=== PATIENT | female | born 1950 | race Two or more races ===

== ENCOUNTER 2018-07-23 18:51 | Emergency (ER) | payer MEDICARE, OTHER ==
[~2018-07-23] VITALS: Ht 167.6 cm; Wt 72.7 kg
[2018-07-23] MEDS ORDERED: ATOR40TA28 PO (18:57)
[2018-07-23] MEDS ORDERED: OMEP20 PO (18:57)
[2018-07-23] MEDS ORDERED: METO25XL PO (18:57)
[2018-07-23] MEDS ORDERED: METF-960 PO (18:57)
[2018-07-23] MEDS ORDERED: ASPI81 PO (18:57)
[2018-07-23 19:04] LABS: GLUCOSE,POINT OF CARE 136 MG/DL (70-110)
[2018-07-23] MEDS ORDERED: METHOCARBAMOL 500 MG TABLET PO ONE (19:45)
[2018-07-23] MEDS ORDERED: KETOROLAC TROMETHAMINE 60 MG/2 ML VIAL IM ONE (19:45)
[2018-07-23 21:15] VITALS: BP 150/90
== END 2018-07-23 21:21 | disposition home or self-care (01) ==
LOC: EMS 18:52
DX: S13.4XXA Sprain of ligaments of cervical spine, initial encounter (principal); S50.02XA Contusion of left elbow, initial encounter; E11.9 Type 2 diabetes mellitus without complications; E78.00 Pure hypercholesterolemia, unspecified; I10 Essential (primary) hypertension; Z90.49 Acquired absence of other specified parts of digestive tract; Z90.710 Acquired absence of both cervix and uterus; Z98.890 Other specified postprocedural states; Z79.82 Long term (current) use of aspirin; Z79.84 Long term (current) use of oral hypoglycemic drugs; Z79.899 Other long term (current) drug therapy; Z88.5 Allergy status to narcotic agent; V43.52XA Car driver injured in collision with other type car in traffic accident, initial encounter; Y93.89 Activity, other specified; Y92.481 Parking lot as the place of occurrence of the external cause; Y99.8 Other external cause status
CPT/HCPCS: 73080; 82962; 96372; 99284; J1885

== ENCOUNTER → 2018-12-27 | Outpatient (CLI) | payer MEDICARE, OTHER ==
[~2018-12-27] MED LIST: ASPI81 PO; ATOR40TA28 PO; METF-960 PO; METO25XL PO; OMEP20 PO
== END | disposition home or self-care (01) ==
LOC: RADPV 12:19
PROVIDERS: ATTEND Internal Medicine
DX: M25.561 Pain in right knee (principal); M25.562 Pain in left knee

== ENCOUNTER → 2019-04-05 | Outpatient (CLI) | payer MEDICARE, OTHER | END | disposition home or self-care (01) | LOC: RADPV 14:18 | PROVIDERS: ATTEND Internal Medicine | DX: M25.521 Pain in right elbow (principal) ==

== ENCOUNTER 2021-05-05 06:22 | Day surgery (SDC) | payer MEDICARE, OTHER ==
[2021-05-03 13:22] LABS: COVID AG,FIA SOURCE NASOPHARYNGEAL
[~2021-05-05] VITALS: Ht 167.6 cm; Wt 72.7 kg
[~2021-05-05 06:22] MED LIST changes: -ASPI81 PO; +KETOROLAC TROMETHAMINE 0.5% 5 ML OPHTHALMIC SOLUTION ONE; +MOXIFLOXACIN HCL 0.5% 3 ML OPHTHALMIC SOLUTION ONE; +PHENYLEPHRINE HCL 2.5% 2 ML OPHTHALMIC SOLUTION ONE; +RINGERS SOLUTION,LACTATED 500 ML IV ONE; +TROPICAMIDE 1% 2 ML OPHTHALMIC SOLUTION ONE
[2021-05-05] MEDS: MOXIFLOXACIN HCL 0.5% 3 ML OPHTHALMIC SOLUTION OD SCH ×3 (06:56→07:07)
[2021-05-05] MEDS: TROPICAMIDE 1% 2 ML OPHTHALMIC SOLUTION OD SCH ×3 (06:56→07:07)
[2021-05-05] MEDS: KETOROLAC TROMETHAMINE 0.5% 5 ML OPHTHALMIC SOLUTION OD SCH ×3 (06:56→07:07)
[2021-05-05] MEDS: PHENYLEPHRINE HCL 2.5% 2 ML OPHTHALMIC SOLUTION OD SCH ×3 (06:56→07:07)
[2021-05-05 07:05] LABS: GLUCOMETER DEV NAME(LOC) SDS.; GLUCOSE,POINT OF CARE 188 MG/DL (70-110)
[2021-05-05] MEDS ORDERED: FentaNYL CITRATE PF 100 MCG/2 ML VIAL IVP ONE (12:00)
[2021-05-05] MEDS ORDERED: MIDAZOLAM HCL 2 MG/2 ML VIAL IVP ONE (12:00)
[2021-05-05] MEDS ORDERED: POVIDONE-IODINE 10% 15 ML SOLUTION UD ONE (17:52)
[2021-05-05] MEDS ORDERED: TETRACAINE HCL/PF 0.5% 4 ML OPHTHALMIC SOLUTION ONE (17:52)
[2021-05-05] MEDS ORDERED: CHONDR SULF A SOD/HYALURONATE 1.05 ML KIT IO ONE (17:52)
[2021-05-05] MEDS ORDERED: LIDOCAINE/PF 1% 2 ML VIAL ONE (17:52)
[2021-05-05] MEDS ORDERED: BALANCED SALT 15 ML OPHTHALMIC IRRIG.SOLN ONE (17:52)
[2021-05-05] MEDS ORDERED: EPINEPHrine 1:1,000 [1 MG/ML] AMP ONE (17:52)
== END 2021-05-05 08:35 | disposition home or self-care (01) ==
LOC: SURGERY 06:22
PROVIDERS: ATTEND Ophthalmology
DX: E11.36 Type 2 diabetes mellitus with diabetic cataract (principal); E11.3293 Type 2 diabetes mellitus with mild nonproliferative diabetic retinopathy without macular edema, bilateral; H25.11 Age-related nuclear cataract, right eye; I10 Essential (primary) hypertension; Z88.6 Allergy status to analgesic agent; Z79.899 Other long term (current) drug therapy; Z83.3 Family history of diabetes mellitus; Z98.890 Other specified postprocedural states; Z90.49 Acquired absence of other specified parts of digestive tract
CPT/HCPCS: 66984; 82962; 87426; 93005; A9575; C9803; J0171; J2250; J3010; J3490; J7120; V2632

== ENCOUNTER 2021-06-02 08:40 | Day surgery (SDC) | payer MEDICARE, OTHER ==
[2021-05-31 15:28] LABS: COVID AG,FIA SOURCE NASOPHARYNGEAL
[~2021-06-02] VITALS: Ht 167.6 cm; Wt 72.7 kg
[2021-06-02] MEDS ORDERED: BALANCED SALT 15 ML OPHTHALMIC IRRIG.SOLN IO ONE (08:41)
[2021-06-02] MEDS ORDERED: TETRACAINE HCL/PF 0.5% 4 ML OPHTHALMIC SOLUTION OD ONE (08:41)
[2021-06-02] MEDS ORDERED: CHONDR SULF A SOD/HYALURONATE 1.05 ML KIT IO ONE (08:41)
[2021-06-02] MEDS ORDERED: LIDOCAINE/PF 1% 2 ML VIAL CAUDAL ONE (08:41)
[2021-06-02] MEDS ORDERED: POVIDONE-IODINE 10% 15 ML SOLUTION UD TP ONE (08:41)
[2021-06-02] MEDS ORDERED: EPINEPHrine 1:1,000 [1 MG/ML] AMP ET ONE (08:41)
[2021-06-02] MEDS: TROPICAMIDE 1% 2 ML OPHTHALMIC SOLUTION OS SCH ×3 (09:08→09:20)
[2021-06-02] MEDS: KETOROLAC TROMETHAMINE 0.5% 5 ML OPHTHALMIC SOLUTION OS SCH ×3 (09:08→09:20)
[2021-06-02] MEDS: PHENYLEPHRINE HCL 2.5% 2 ML OPHTHALMIC SOLUTION OS SCH ×3 (09:08→09:19)
[2021-06-02] MEDS: MOXIFLOXACIN HCL 0.5% 3 ML OPHTHALMIC SOLUTION OS SCH ×3 (09:08→09:19)
[2021-06-02 09:24] LABS: GLUCOMETER DEV NAME(LOC) SDS.; GLUCOSE,POINT OF CARE 139 MG/DL (70-110)
[2021-06-02] MEDS ORDERED: FentaNYL CITRATE PF 100 MCG/2 ML VIAL IVP ONE (12:00)
[2021-06-02] MEDS ORDERED: MIDAZOLAM HCL 2 MG/2 ML VIAL IVP ONE (12:00)
== END 2021-06-02 10:20 | disposition home or self-care (01) ==
LOC: SURGERY 08:40
PROVIDERS: ATTEND Ophthalmology
DX: E11.36 Type 2 diabetes mellitus with diabetic cataract (principal); H25.12 Age-related nuclear cataract, left eye; I10 Essential (primary) hypertension; E78.00 Pure hypercholesterolemia, unspecified; Z72.89 Other problems related to lifestyle; Z90.710 Acquired absence of both cervix and uterus; Z90.49 Acquired absence of other specified parts of digestive tract; Z98.890 Other specified postprocedural states; Z79.899 Other long term (current) drug therapy; Z88.6 Allergy status to analgesic agent
CPT/HCPCS: 66984; 82962; 87426; A9575; C9803; J0171; J2250; J3010; J3490; J7120; V2632